=== PATIENT | male | born 1995 | race Caucasian/White ===

== ENCOUNTER 2017-07-01 15:42 | Emergency (ER) | payer OTHER ==
[~2017-07-01] VITALS: Ht 167.6 cm; Wt 95.0 kg
[~2017-07-01 15:42] MED LIST: METH20TA; METH20TA PO; ONDA4TAB8 PO
[2017-07-01 15:46] VITALS: Ht 167.6 cm; Wt 95.0 kg
[2017-07-01] MEDS ORDERED: IBUPROFEN 800 MG TAB PO ONE (16:30)
--- NOTE | 2017-07-01 16:50 | RADRPT ---
PROCEDURE: XR left ankle CLINICAL INDICATION: Pain status post trauma TECHNIQUE: AP, oblique, and lateral views of the left ankle were performed. COMPARISON: None available FINDINGS: No acute fractures or dislocations are present. Soft tissue swelling is noted. The ankle mortise is well maintained. No radiodense foreign bodies are present. IMPRESSION: 1. No acute fractures or dislocations. 2. Soft tissue swelling of the left ankle RPTAT: HDC .Radha Sanchez MD, MD Date Time Electronically viewed and signed by .Radha Sanchez MD, on 07/01/2017 16:49 .C/
[2017-07-01] MEDS ORDERED: IBUP-1542 PO (17:37)
--- NOTE | 2017-07-01 17:43 | ERD ---
ER Documentation Chief Complaint Chief Complaint Complains of left ankle pain since this am HPI This 22-year-old male complains of left ankle pain after twisting this morning. He has restricted range of motion due to pain but no weakness. He has no fevers or redness. ROS All systems reviewed and are negative except as per history of present illness. Medications Home Meds Active Scripts Ibuprofen* (Motrin*) 600 Mg Tab, 600 MG PO Q6, #20 TAB Prov:RANDALL BERG MD 07/01/17 Ondansetron Hcl* (Zofran*) 4 Mg Tablet, 4 MG PO Q8H Y for NAUSEA AND/OR VOMITING , #14 TAB Prov:DA SCHNEIDER PA-C 08/01/15 Reported Medications Methylphenidate Hcl* (Ritalin*) 20 Mg Tablet, 20 MG PO DAILY 05/24/13 Methylphenidate Hcl* (Ritalin*) 20 Mg Tablet 08/24/09 Allergies Allergies: Coded Allergies: No Known Drug Allergy (Verified Allergy, Mild, 08/01/15) PMhx/Soc Anesthesia Reaction: No Hx Neurological Disorder: No Hx Respiratory Disorders: No Hx Cardiac Disorders: No Hx Psychiatric Problems: No Hx Miscellaneous Medical Probl: No Hx Alcohol Use: Yes Hx Substance Use: Yes Hx Tobacco Use: No Smoking Status: Current some day smoker Physical Exam Vitals Vital Signs Date Time Temp Pulse Resp B/P Pulse Ox O2 Delivery O2 Flow Rate FiO2 07/01/17 15:46 99.9 95 20 132/71 96 Physical Exam Const: [] Alert, not ill-appearing. Head: Atraumatic Eyes: Normal Conjunctiva ENT: Normal External Ears, Nose and Mouth. Neck: Full range of motion..~ No meningismus. Resp: Clear to auscultation bilaterally Cardio: Regular rate and rhythm, no murmurs Abd: Soft, non tender, non distended. Normal bowel sounds Skin: No petechiae or rashes Back: No midline or flank tenderness Ext: No cyanosis, or edema generalized swelling and tenderness of the left ankle joint. No appreciable foot or tib-fib tenderness or deformities. No appreciable tendon or neurologic deficits. No warmth, erythema or bleeding. Neur: Awake and alert Psych: Normal Mood and Affect Results 24 hrs Current Medications Medications (Trade) Dose Ordered Sig/Alycia Route PRN Reason Start Time Stop Time Status Last Admin Dose Admin Ibuprofen (Motrin) 800 mg ONCE ONCE PO 07/01/17 16:30 07/01/17 16:31 DC 07/01/17 16:25 Procedures/MDM X-ray Ankle 3V Interpreted by me: Bones: [No fracture] Joints: No dislocation. Impression-soft tissue swelling without fracture or dislocation on left ankle x-ray Specimen left ankle stirrup splint patient is nervous intact after splint. Patient has signs and symptoms of left ankle sprain without evidence of fracture , dislocation, bacterial infection, deficits, ischemia. She will treated ibuprofen, instructions for ice, elevation and primary care follow-up, and possible orthopedic evaluation return precautions and further observation at home. The patient was stable with no new complaints during the ER course. Clinically, there is no current evidence to suggest meningitis, sepsis, acute abdomen, pneumonia, acute coronary syndrome, pulmonary embolism, or any other emergent condition appearing to require further evaluation or hospitalization. The patient should certainly return for any new or worsening symptoms per the aftercare instructions. They should otherwise follow-up with her primary care doctor for reevaluation this week. Departure Patient Instructions: Treating Ankle Sprains Additional Instructions: X-ray read as normal. Likely sprain. Ice and elevate at home. Follow-up with primary doctor plus orthopedist for pain next week. Recheck sooner for fevers, redness, new symptoms. RANDALL BERG MD Jul 01, 2017 17:43
[2017-07-01 17:53] VITALS: BP 118/65; PULSE 72; RESP 19
== END 2017-07-01 17:53 | disposition home or self-care (01) ==
LOC: FTE 15:42
DX: S93.402A Sprain of unspecified ligament of left ankle, initial encounter (principal); F17.210 Nicotine dependence, cigarettes, uncomplicated; X58.XXXA Exposure to other specified factors, initial encounter; Y92.9 Unspecified place or not applicable
CPT/HCPCS: 73610; Z7502; Z7610

== ENCOUNTER 2017-11-28 08:02 | Emergency (ER) | END 2017-11-28 10:53 | disposition home or self-care (01) ==

== ENCOUNTER → 2017-11-30 | Emergency (ER) | END | disposition home or self-care (01) ==

== ENCOUNTER 2018-01-04 04:44 | Emergency (ER) | END 2018-01-04 07:23 | disposition home or self-care (01) ==

== ENCOUNTER 2018-01-05 04:53 | Emergency (ER) | END 2018-01-05 06:15 | disposition home or self-care (01) ==

== ENCOUNTER 2018-06-05 06:28 | Emergency (ER) | END 2018-06-05 08:40 | disposition home or self-care (01) ==